=== PATIENT | male | born 1965 ===

== ENCOUNTER 2019-06-30 08:53 | Emergency (ER) | payer OTHER ==
--- NOTE | 2019-06-30 09:22 | UC ---
Laceration HPI - History Of Current Complaint Chief Complaint: UCGeneralIllness Stated Complaint: FINGER LACERATION Time Seen by Provider: 06/30/19 09:02 Hx Obtained From: Patient Pain Intensity: 0 - Allergies/Home Medications Allergies/Adverse Reactions: Allergies Allergy/AdvReac Type Severity Reaction Status Date / Time doxycycline Allergy Intermediate headaches Verified 06/30/19 09:04 Home Medications: Home Medications Hydrocodone/Acetaminophen [Hydrocodone/Acetaminophen 5-325 mg] 1 tab PO SEE INSTRUCTIONS 06/30/19 [History Confirmed 06/30/19] PMH/Surg Hx/FS Hx/Imm Hx Previously Healthy: Yes - Surgical History Surgical History: Yes Surgery Procedure, Year, and Place: right shoulder 2011. lef knee jul 2016 - Family History Known Family History: Positive: Non-Contributory - Social History Lives: With Family Alcohol Use: Daily Substance Use Type: None Smoking Status (MU): Never Smoked Tobacco Physical Exam Vital Signs: Initial Vital Signs Temp 98.0 F 06/30/19 09:00 Pulse 73 06/30/19 09:00 Resp 18 06/30/19 09:00 BP 132/89 06/30/19 09:00 Pulse Ox 100 06/30/19 09:00 Discharge ED - Discharge Plan Referrals: No Primary Care Phys,NOPCP [Primary Care Provider] -
--- NOTE | 2019-06-30 09:30 | UC ---
Upper Extremity HPI - HPI Summary HPI Summary: 54-year-old male presents for right elbow pain and difficulty fully extending the elbow. 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 He sustained a small superficial laceration to his right index finger that is healing well but he became concerned for possible tetanus when his symptoms started the next day. His work does involve a lot of repetitive movements. No known injury to the elbow. Last tetanus was in 05/2015. Denies erythema, ecchymosis, edema, numbness or tingling. - History of Current Complaint Chief Complaint: UCGeneralIllness Stated Complaint: FINGER LACERATION Time Seen by Provider: 06/30/19 09:02 Hx Obtained From: Patient Pain Intensity: 0 - Allergies/Home Medications Allergies/Adverse Reactions: Allergies Allergy/AdvReac Type Severity Reaction Status Date / Time doxycycline Allergy Intermediate headaches Verified 06/30/19 09:04 Home Medications: Home Medications Hydrocodone/Acetaminophen [Hydrocodone/Acetaminophen 5-325 mg] 1 tab PO SEE INSTRUCTIONS 06/30/19 [History Confirmed 06/30/19] PMH/Surg Hx/FS Hx/Imm Hx Previously Healthy: Yes - Denies significant PMH - Surgical History Surgical History: Yes Surgery Procedure, Year, and Place: right shoulder 2011. lef knee jul 2016 - Family History Known Family History: Positive: Non-Contributory - Social History Occupation: Employed Full-time Lives: With Family Alcohol Use: Daily Substance Use Type: None Smoking Status (MU): Never Smoked Tobacco - Immunization History Most Recent Tetanus Shot: 05/2015 Review of Systems All Other Systems Reviewed And Are Negative: Yes Constitutional: Negative: Fever, Chills Skin: Positive: Other - Laceration ENT: Negative: Other - Trismus Respiratory: Positive: Negative Cardiovascular: Positive: Negative Gastrointestinal: Positive: Negative Genitourinary: Positive: Negative Musculoskeletal: Positive: Arthralgia - See HPI, Decreased ROM Neurological: Positive: Negative Is Patient Immunocompromised?: No Physical Exam - Summary Physical Exam Summary: GENERAL APPEARANCE: Well developed, well nourished, alert and cooperative adult male who appears to be in no acute distress. MOUTH/THROAT: Pharynx normal. Uvula midline. Oral cavity normal. No trismus. NECK: Neck supple, non-tender. CARDIAC: Normal S1 and S2. No S3, S4 or murmurs. Rhythm is regular. There is no peripheral edema, cyanosis or pallor. Extremities are warm and well perfused. Capillary refill is less than 2 seconds. Peripheral pulses intact. LUNGS: Clear to auscultation without rales, rhonchi, wheezing or diminished breath sounds. ABDOMEN: Positive bowel sounds. Soft, nondistended, nontender. No guarding or rebound. No masses or hepatosplenomegally. MUSKULOSKELETAL: Normal muscular development. Normal gait. EXTREMITIES: Tenderness with palpation over the right lateral epicondyle without erythema, ecchymosis, or edema. Pain with wrist extension to resistance. Full flexion but extension slightly limited. NEUROLOGICAL:Strength and sensation symmetric and intact. SKIN: Skin normal color, texture and turgor. Healing, superficial 1 cm laceration with well approximated wound margins to the medial aspect of the right index finger without erythema, edema, or discharge. Triage Information Reviewed: Yes Vital Signs: Initial Vital Signs Temp 98.0 F 06/30/19 09:00 Pulse 73 06/30/19 09:00 Resp 18 06/30/19 09:00 BP 132/89 06/30/19 09:00 Pulse Ox 100 06/30/19 09:00 Vital Signs Reviewed: Yes Upper Extremity Course/Dx - Course Course Of Treatment: 54-year-old male presents for right elbow pain and difficulty fully extending the elbow. 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 He sustained a small superficial laceration to his right index finger that is healing well but he became concerned for possible tetanus when his symptoms started the next day. His work does involve a lot of repetitive movements. No known injury to the elbow. Last tetanus was in 05/2015. Denies erythema, ecchymosis, edema, numbness or tingling. Afebrile. Vital signs stable. Patient had tenderness with palpation over the right lateral epicondyle without erythema, ecchymosis, or edema. Pain with wrist extension to resistance. Full flexion but extension slightly limited. He was also noted to have a healing, superficial 1 cm laceration with well approximated wound margins to the medial aspect of the right index finger without erythema, edema, or discharge. Discussed with patient that his symptoms are consistent with a lateral epicondylitis and and had with his tetanus being up-to-date this would be a very unlikely diagnosis. Recommending conservative treatment including NSAIDs, RICE, and use of a counterforce brace. He is to follow-up with orthopedic surgery in 7 days if symptoms are not improving. Anticipatory guidance and warning symptoms were reviewed with the patient. Verbalizes understanding and agrees with plan of care. - Differential Dx/Diagnosis Provider Diagnosis: Lateral epicondylitis of right elbow Discharge ED - Sign-Out/Discharge Documenting (check all that apply): Patient Departure All imaging exams completed and their final reports reviewed: No Studies - Discharge Plan Condition: Stable Disposition: HOME Prescriptions: Naproxen [Naproxen 500 mg tab] 500 mg PO Q12HR #30 tablet Patient Education Materials: Tennis Elbow (ED) Referrals: No Primary Care Phys,NOPCP [Primary Care Provider] - Romero Madison MD [Medical Doctor] - 7 Days (If no improvement in symptoms.) Additional Instructions: Your symptoms are consistent with a condition called lateral epicondylitis ( tennis elbow). Rest the elbow as much as possible. Use a counter force brace to provide support and help with pain. Apply ice to the affected area for 15-20 minutes at least 4 times a day to help with the pain and swelling. Take naproxen 500 mg 1 tab every 12 hours with food for the next 5- days then may take every 12 hours as needed for pain. Follow up with orthopedic surgery in 7 days if symptoms do not improve. Call for appointment. Seek immediate medical attention if you develop fever greater than 100.5 F, have severe pain not managed with pain medication, you develop muscle spasms especially in the jaw, develop numbness or tingling in the arm, hand, or fingers , or have any worsening of symptoms. - Billing Disposition and Condition Condition: STABLE Disposition: Home
== END 2019-06-30 09:30 | disposition home or self-care (01) ==
LOC: UCEAST 08:53
DX: S61.210D Laceration without foreign body of right index finger without damage to nail, subsequent encounter (principal); M77.11 Lateral epicondylitis, right elbow; Z88.1 Allergy status to other antibiotic agents; X50.1XXD Overexertion from prolonged static or awkward postures, subsequent encounter
CPT/HCPCS: 99201; G0463